=== PATIENT | female | born 1980 | race Caucasian/White ===

== ENCOUNTER 2024-11-08 17:20 | Emergency (ER) | payer OTHER, SELFPAY ==
[2024-11-08 17:22] VITALS: BP 107/63
--- NOTE | 2024-11-08 18:11 | ED.GENMED ---
History of Present Illness
General
Chief Complaint: Abdominal Symptoms
Source: patient
Exam Limitations: none
Time Seen by Provider: 11/08/24 17:59
History of Present Illness
History of Present Illness:
44-year-old otherwise healthy female presents complaining of right lower quadrant abdominal pain fairly constant in nature persistent over the past several days. She was sent in by her GI team. Incidentally she is electively having her gallbladder
removed in 4 days as she has many stones in her gallbladder however the pain that she has today is different than her gallbladder pain. She was sent in to rule out appendicitis. The pain does not radiate to the back. No associated vomiting or
fever. No urinary symptoms. She is on a control pill and does not get her menstrual cycle. She did have an ultrasound of her pelvis 2 days ago for the same pain which was negative.
Phy Exam
Physical Exam
Physical Exam:
General: Well-appearing female no acute respiratory distress
HEENT: Normal cephalic atraumatic
Heart: Regular rate and rhythm
Lungs: Clear no wheeze
Abdomen soft mildly tender to the right lower quadrant no guarding no rebound nondistended
Extremities: No cyanosis
Course
Orders/Labs/Results
Orders:
Orders
11/08/24 18:10
CT Abd/pel W Iv And Oral Contr Urgent
Comment:
Reason For Exam: rlq pain
Iohexol [Omnipaque] See Protocol PO NOW STA
Test Result ONCE
11/08/24 18:34
Complete Blood Count/With Diff Urgent
Comprehensive Metabolic Panel Urgent
HCG, Serum Qualitative Screen Urgent
Urinalysis Reflex To Culture Urgent
Date Specimen was Collected: 11/08/24
Time Specimen was Collected: 18:27
Abnormal Lab Results
11/08/24
18:34
WBC 4.4 L 10^3/uL
(4.8-10.8)
RBC 4.14 L 10^6/uL
(4.20-5.40)
Hgb 11.9 L g/dL
(12.0-16.0)
Hct 35.5 L %
(37.0-47.0)
MPV 12.7 H fL
(7.4-10.4)
Glucose 176 H mg/dl
(70-99)
ALT 46 H U/L
(0-35)
Alkaline Phosphatase 33 L U/L
(38-126)
11/08/24 18:34
11/08/24 18:34
Vital Signs
Initial and Last Documented VS:
Initial Vital Signs
Temp Pulse Resp BP Pulse Ox
98.1 F 83 16 107/63 100
11/08/24 17:22 11/08/24 17:22 11/08/24 17:22 11/08/24 17:22 11/08/24 17:22
Last Documented Vital Signs
Temp Pulse Resp BP Pulse Ox
98.7 F 93 44 105/70 100
11/08/24 21:16 11/08/24 21:16 11/08/24 21:16 11/08/24 21:16 11/08/24 18:12
MDM/Problems Addressed
Differential Diagnosis Includes:
Patient with right lower quadrant pain. Sent in by GI team to evaluate for appendicitis. She has known gallstones and is due to have her gallbladder removed in 4 days. Pain is not right upper quadrant today. Will check labs. CT with oral and IV
contrast ordered
*Pulse Oximetry
SaO2: 100
Oxygen Mode of Delivery: Room air
Patient hypoxic: no
*Critical Care Note
Total Time (30-74mins, 75-104mins- exclusive of procedures): Not Applicable
Update Note
Update Note:
CT negative. Patient reassured. She will continue to follow-up with her doctors as planned
ED Attending Note
-
Portions of this chart may have been created with voice recognition software.� Occasional wrong word or��sound alike� substitutions may have occurred due to the inherent limitations of voice recognition software.
Discharge Plan
Departure
Patient Disposition: Home (Routine Discharge)
Date of Disposition: 11/08/24
Time of Disposition: 23:32
Patient with high blood pressure during this ER visit?: No
Discharge Problem:
Abdominal pain
Instructions: Abdominal Pain
Referrals:
Neeta Alcantara MD [Family Provider, Internal Medicine]
Activity Restrictions/Additional Instructions:
You may use Tylenol if needed for pain. Continue current medications. Follow-up with doctors as planned
Interventions
Interventions:
*Risk Screen - Suicide Last Done: 11/08/24 17:22
*General Assessment Last Done: 11/08/24 18:43
*Neglect/Abuse Screening Last Done: 11/08/24 17:22
*ED- Fall Risk Assessment Last Done: 11/08/24 18:43
*ED COVID-19 Vaccine History Last Done: 11/08/24 18:43
EB-Erfzmx-Jubqdquixl Assessment Last Done: 11/08/24 18:43
Discharge Date and Time
Print Language: PERSIAN
[2024-11-08] MEDS: OMNIPAQUE 50 ML PO (18:33)
[2024-11-08 18:43] VITALS: BMI 19.5
[2024-11-08 18:51] LABS: Hematocrit 35.5 % (37.0-47.0); Hemoglobin 11.9 g/dL (12.0-16.0); Mean Corp Hgb Conc. 33.5 g/dL (33.0-37.0); Mean Corpuscular Volume 85.7 fL (81.0-99.0); Nucleated Red Blood Cells % 0 %; Platelet Count 208 10^3/uL (130-400); Red Cell Dist. Width 12.5 % (11.5-14.5)
[2024-11-08 19:05] LABS: HCG, Serum Qualitative Screen Negative
[2024-11-08 19:12] LABS: ALT (SGPT) 46 U/L (0-35); AST (SGOT) 21 U/L (14-36); Albumin 4.3 g/dl (3.5-5.0); Alkaline Phosphatase 33 U/L (38-126); Blood Urea Nitrogen 13 mg/dl (7-17); Calcium 9.2 mg/dl (8.4-10.2); Carbon Dioxide 25 mmol/L (22-30); Chloride 105 mmol/L (98-107); Estimated Creatinine Clearance 74 ml/min; Glucose 176 mg/dl (70-99); Potassium 3.9 mmol/L (3.5-5.1); Sodium 137 mmol/L (135-145); Total Protein 6.9 g/dl (6.3-8.2); eGFR > 60.00
[2024-11-08 19:35] LABS: Urine Character Clear (Clear)
[2024-11-08 21:16] VITALS: BP 105/70
[2024-11-08 23:55] VITALS: BP 108/72
== END 2024-11-08 23:55 | disposition home or self-care (01) ==
LOC: EMR 17:20
PROVIDERS: Physician Assistant; EMERGENCY PHYSICIAN Emergency Medicine; FAMILY PHYSICIAN Internal Medicine
DX: R10.31 Right lower quadrant pain (principal); K80.20 Calculus of gallbladder without cholecystitis without obstruction; Z79.3 Long term (current) use of hormonal contraceptives
CPT/HCPCS: 99284; 74177; 80053; 81003; 84703; 85025; Q9967